=== PATIENT | male | born 1995 | race Caucasian/White ===

== ENCOUNTER 2020-01-25 04:09 | Emergency (ER) | payer SELFPAY ==
[2020-01-25] MEDS ORDERED: Sodium Chloride 0.9% 10 ML Syringe FLUSH PRN (04:12)
[2020-01-25] MEDS ORDERED: Sodium Chloride 0.9% 2.5 ML Syringe FLUSH PRN (04:12)
[2020-01-25] MEDS ORDERED: Sodium Chloride 0.9% 1,000 ML IV ONE (04:13)
[2020-01-25] MEDS ORDERED: Ketorolac 15 MG/ML SDV IVPUSH ONE (04:13)
--- NOTE | 2020-01-25 04:21 | EDM.PDOC ---
ED HPI GENERAL MEDICAL PROBLEM - General Chief Complaint: Genitourinary Problem Stated Complaint: LOWER BACK PAIN Time Seen by Provider: 01/25/20 04:12 - History of Present Illness INITIAL COMMENTS - FREE TEXT/NARRATIVE: History of present illness: 44-year-old male presenting with left lower back/flank pain radiating into the left side of the abdomen. Reports pain is becoming more severe. Started several hours ago. Patient is pale and diaphoretic. No nausea or vomiting. No fevers. No chest pain or difficulty breathing. No prior similar episodes of pain. Review of systems: As per history of present illness and below otherwise all systems reviewed and negative. Past medical history: As per history of present illness and as reviewed below otherwise noncontributory. Surgical history: As per history of present illness and as reviewed below otherwise noncontributory. Social history: No reported history of drug or alcohol abuse. Never smoker Family history: As per history of present illness and as reviewed below otherwise noncontributory. Physical exam: GEN: no acute distress, well appearing HEENT: Atraumatic, normocephalic, mucous membranes moist, Neck: supple, nontender, trachea midline. Lungs: No respiratory distress. Heart: RRR Abdomen: Soft, nondistended, tender to palpation left lower quadrant Back: Left CVA tenderness Extremities: Atraumatic. Neurovascularly intact. Neuro: Awake, alert, oriented. Neuro Exam nonfocal. Skin: warm, dry, no lesions Diagnostics: Labs, CT scan, UA Therapeutics: IV fluids, Toradol MDM: Impression: [] Plan: [] Definitive disposition and diagnosis as appropriate pending reevaluation and review of above. left flank Pain Score (Numeric/FACES): 9 - Related Data Allergies Allergy/AdvReac Type Severity Reaction Status Date / Time No Known Allergies Allergy Verified 01/25/20 04:29 Home Meds: Home Meds Acetaminophen/HYDROcodone [Hewitt 325-5 MG] 1 tab PO Q8H PRN #15 tablet 01/25/20 [Rx] Ibuprofen 600 mg PO Q8H #30 tablet 01/25/20 [Rx] Tamsulosin [Tamsulosin 24 Hr] 0.4 mg PO DAILY #30 cap.er 01/25/20 [Rx] cephALEXin [Keflex] 1,000 mg PO BID #40 cap 01/25/20 [Rx] ED ROS GENERAL - Review of Systems Review Of Systems: See Below (See HPI) ED EXAM, RENAL/ - Physical Exam Exam: See Below (See HPI) Course - Vital Signs Text/Narrative:: Left flank pain. Diaphoretic and pale due to pain. White count is elevated. Labs unremarkable. CT scan shows 3 mm stone just proximal to the UVJ. Pain improved after Toradol and morphine. UA does show positive nitrates but negative leuk esterase and minimal whites, minimal bacteria and moderate RBCs. Given severity of pain and that serum WBC is elevated, will cover with antibiotics. Last Recorded V/S: Last Vital Signs Temp 96.3 F L 01/25/20 04:30 Pulse 64 01/25/20 04:30 Resp 18 01/25/20 04:30 BP 120/78 01/25/20 04:30 Pulse Ox 96 01/25/20 04:30 - Orders/Labs/Meds Orders: Active Orders 24 hr Category Date Time Status Sodium Chloride 0.9% [Saline Flush] Med 01/25/20 04:12 Active 10 ml FLUSH ASDIRECTED PRN Sodium Chloride 0.9% [Saline Flush] Med 01/25/20 04:12 Active 2.5 ml FLUSH ASDIRECTED PRN Saline Lock Insert [OM.PC] Stat Oth 01/25/20 04:12 Ordered Saline Lock Insert [OM.PC] Stat Oth 01/25/20 04:13 Ordered Medication Orders Sodium Chloride (Saline Flush) 10 ml FLUSH ASDIRECTED PRN PRN Reason: Keep Vein Open Sodium Chloride (Saline Flush) 2.5 ml FLUSH ASDIRECTED PRN PRN Reason: Keep Vein Open Labs: Laboratory Tests 01/25/20 01/25/20 01/25/20 Range/Units 04:25 04:25 04:25 WBC 16.63 H (4.0-11.0) K/uL RBC 5.03 (4.50-5.90) M/uL Hgb 15.0 (13.0-17.0) g/dL Hct 43.3 (38.0-50.0) % MCV 86.1 (80.0-98.0) fL MCH 29.8 (27.0-32.0) pg MCHC 34.6 (31.0-37.0) g/dL RDW Std Deviation 37.8 (28.0-62.0) fl RDW Coeff of Penny 12 (11.0-15.0) % Plt Count 326 (150-400) K/uL MPV 11.50 (7.40-12.00) fL Neut % (Auto) 74.9 (48.0-80.0) % Lymph % (Auto) 18.2 (16.0-40.0) % Mcnairy % (Auto) 6.6 (0.0-15.0) % Eos % (Auto) 0.2 (0.0-7.0) % Baso % (Auto) 0.1 (0.0-1.5) % Neut # (Auto) 12.5 H (1.4-5.7) K/uL Lymph # (Auto) 3.0 H (0.6-2.4) K/uL Mcnairy # (Auto) 1.1 H (0.0-0.8) K/uL Eos # (Auto) 0.0 (0.0-0.7) K/uL Baso # (Auto) 0.0 (0.0-0.1) K/uL Nucleated RBC % 0.0 /100WBC Nucleated RBCs # 0 K/uL Sodium 142 (136-148) mmol/L Potassium 3.6 (3.5-5.1) mmol/L Chloride 103 (98-107) mmol/L Carbon Dioxide 28.9 (21.0-32.0) mmol/L BUN 11 (7.0-18.0) mg/dL Creatinine 1.2 (0.8-1.3) mg/dL Est Cr Clr Drug Dosing 90.28 mL/min Estimated GFR (MDRD) > 60.0 ml/min Glucose 148 H (74-106) mg/dL Calcium 9.1 (8.5-10.1) mg/dL Total Bilirubin 0.4 (0.2-1.0) mg/dL Direct Bilirubin 0.10 (0.0-0.5) mg/dL Indirect Bilirubin 0.30 AST 22 (15-37) IU/L ALT 27 (14-63) IU/L Alkaline Phosphatase 91 (46-116) U/L Total Protein 8.3 H (6.4-8.2) g/dL Albumin 4.5 (3.4-5.0) g/dL Globulin 3.8 (2.6-4.0) g/dL Albumin/Globulin Ratio 1.2 (0.9-1.6) Lipase 72 L (73-393) U/L Urine Color Urine Appearance Urine pH (5.0-8.0) Ur Specific Velarde (1.001-1.035) Urine Protein (NEGATIVE) mg/dL Urine Glucose (UA) (NEGATIVE) mg/dL Urine Ketones (NEGATIVE) mg/dL Urine Occult Blood (NEGATIVE) Urine Nitrite (NEGATIVE) Urine Bilirubin (NEGATIVE) Urine Urobilinogen (<2.0) EU/dL Ur Leukocyte Esterase (NEGATIVE) Urine RBC (0-2/HPF) Urine WBC (0-5/HPF) Ur Epithelial Cells (NONE-FEW) Calcium Oxalate Crystal (NEGATIVE) Amorphous Sediment (NEGATIVE) Urine Bacteria (NEGATIVE) Urine Mucus (NONE-MOD) 01/25/20 Range/Units 05:50 WBC (4.0-11.0) K/uL RBC (4.50-5.90) M/uL Hgb (13.0-17.0) g/dL Hct (38.0-50.0) % MCV (80.0-98.0) fL MCH (27.0-32.0) pg MCHC (31.0-37.0) g/dL RDW Std Deviation (28.0-62.0) fl RDW Coeff of Penny (11.0-15.0) % Plt Count (150-400) K/uL MPV (7.40-12.00) fL Neut % (Auto) (48.0-80.0) % Lymph % (Auto) (16.0-40.0) % Mcnairy % (Auto) (0.0-15.0) % Eos % (Auto) (0.0-7.0) % Baso % (Auto) (0.0-1.5) % Neut # (Auto) (1.4-5.7) K/uL Lymph # (Auto) (0.6-2.4) K/uL Mcnairy # (Auto) (0.0-0.8) K/uL Eos # (Auto) (0.0-0.7) K/uL Baso # (Auto) (0.0-0.1) K/uL Nucleated RBC % /100WBC Nucleated RBCs # K/uL Sodium (136-148) mmol/L Potassium (3.5-5.1) mmol/L Chloride (98-107) mmol/L Carbon Dioxide (21.0-32.0) mmol/L BUN (7.0-18.0) mg/dL Creatinine (0.8-1.3) mg/dL Est Cr Clr Drug Dosing mL/min Estimated GFR (MDRD) ml/min Glucose (74-106) mg/dL Calcium (8.5-10.1) mg/dL Total Bilirubin (0.2-1.0) mg/dL Direct Bilirubin (0.0-0.5) mg/dL Indirect Bilirubin AST (15-37) IU/L ALT (14-63) IU/L Alkaline Phosphatase (46-116) U/L Total Protein (6.4-8.2) g/dL Albumin (3.4-5.0) g/dL Globulin (2.6-4.0) g/dL Albumin/Globulin Ratio (0.9-1.6) Lipase (73-393) U/L Urine Color DARK YELLOW Urine Appearance CLOUDY Urine pH 5.5 (5.0-8.0) Ur Specific Velarde >= 1.030 (1.001-1.035) Urine Protein 100 H (NEGATIVE) mg/dL Urine Glucose (UA) NEGATIVE (NEGATIVE) mg/dL Urine Ketones NEGATIVE (NEGATIVE) mg/dL Urine Occult Blood LARGE H (NEGATIVE) Urine Nitrite POSITIVE H (NEGATIVE) Urine Bilirubin SMALL H (NEGATIVE) Urine Urobilinogen 0.2 (<2.0) EU/dL Ur Leukocyte Esterase NEGATIVE (NEGATIVE) Urine RBC 95-100 (0-2/HPF) Urine WBC 0-2 (0-5/HPF) Ur Epithelial Cells FEW (NONE-FEW) Calcium Oxalate Crystal OCCASIONAL (NEGATIVE) Amorphous Sediment LIGHT (NEGATIVE) Urine Bacteria FEW (NEGATIVE) Urine Mucus MODERATE (NONE-MOD) Meds: Medications Generic Name Dose Route Start Last Admin Trade Name Freq PRN Reason Stop Dose Admin Sodium Chloride 10 ml 01/25/20 04:12 Saline Flush FLUSH ASDIRECTED PRN Keep Vein Open Sodium Chloride 2.5 ml 01/25/20 04:12 Saline Flush FLUSH ASDIRECTED PRN Keep Vein Open Discontinued Medications Generic Name Dose Route Start Last Admin Trade Name Freq PRN Reason Stop Dose Admin Cephalexin 1,000 mg 01/25/20 06:46 Keflex PO 01/25/20 06:47 ONETIME ONE Sodium Chloride 1,000 mls @ 999 mls/hr 01/25/20 04:13 01/25/20 04:25 Normal Saline IV 01/25/20 05:13 999 mls/hr .Bolus ONE Administration Ketorolac Tromethamine 15 mg 01/25/20 04:13 01/25/20 04:25 Toradol IVPUSH 01/25/20 04:14 15 mg ONETIME ONE Administration Ketorolac Tromethamine 15 mg 01/25/20 04:59 01/25/20 05:07 Toradol IVPUSH 01/25/20 05:00 15 mg ONETIME ONE Administration Morphine Sulfate 4 mg 01/25/20 05:01 01/25/20 05:07 Morphine IVPUSH 01/25/20 05:02 4 mg ONETIME ONE Administration - Re-Assessments/Exams Free Text/Narrative Re-Assessment/Exam: 01/25/20 05:01 Patient just returned from CT scan, reports he is still in pain and requesting additional pain medication. A second 15 mg dose of Toradol was ordered, and will also order morphine. 01/25/20 05:41 I reassessed the patient. He is feeling much better. Discussed CT scan results with the patient and plan of care. He will attempt to urinate so that we can check a urinalysis. 01/25/20 06:55 Patient is resting comfortably, sleeping. Discussed all the results with the patient and all the medications that have been prescribed for him as well as exactly how to take them. Did also discussed that he may possibly have a urinary tract infection associated with his kidney stone and therefore antibiotics have been prescribed as well. The patient did voice understanding of all of the above and feels well enough to go home at this time. Departure - Departure Time of Disposition: 06:45 Disposition: Home, Self-Care 01 Clinical Impression: Renal colic on left side - Discharge Information Prescriptions: Tamsulosin [Tamsulosin 24 Hr] 0.4 mg PO DAILY #30 cap.er Ibuprofen 600 mg PO Q8H #30 tablet cephALEXin [Keflex] 1,000 mg PO BID #40 cap Acetaminophen/HYDROcodone [Hewitt 325-5 MG] 1 tab PO Q8H PRN #15 tablet PRN Reason: Pain (Severe 7-10) Instructions: Kidney Stones, [id number], Pain Medicine Instructions, [id number] Referrals: PCP,None [Primary Care Provider] - Rosa Ibarra MD [Physician] - 2 Days Forms: ED Department Discharge Additional Instructions: Take the ibuprofen 600 mg every 8 hours for the next 3 days. Also please take the Flomax once daily. If your pain is improved after the next 3 days you may stop taking the ibuprofen or take it only as needed. You may have a urinary tract infection in association with a kidney stone. Please take the antibiotics as prescribed until all pills are done. If your pain is severe and not well controlled by the ibuprofen, you may also take the Hewitt. Please avoid this medication and only take it if you absolutely needed and if you have already taken ibuprofen and your pain has not been improved by that medicine. The following information is given to patients seen in the emergency department who are being discharged to home. This information is to outline your options for follow-up care. We provide all patients seen in our emergency department with a follow-up referral. The need for follow-up, as well as the timing and circumstances, are variable depending upon the specifics of your emergency department visit. If you don't have a primary care physician on staff, we will provide you with a referral. We always advise you to contact your personal physician following an emergency department visit to inform them of the circumstance of the visit and for follow-up with them and/or the need for any referrals to a consulting specialist. The emergency department will also refer you to a specialist when appropriate. This referral assures that you have the opportunity for follow-up care with a specialist. All of these measure are taken in an effort to provide you with optimal care, which includes your follow-up. Under all circumstances we always encourage you to contact your private physician who remains a resource for coordinating your care. When calling for follow-up care, please make the office aware that this follow-up is from your recent emergency room visit. If for any reason you are refused follow-up, please contact the [facility] Emergency Department at and asked to speak to the emergency department charge nurse. Nain[facility] - Primary Care [address] [place] [address] [facility] [address] [place] [id number] Sepsis Event Note (ED) - Focused Exam Vital Signs: Vital Signs Temp Pulse Resp BP Pulse Ox 01/25/20 04:30 96.3 F L 64 18 120/78 96 - My Orders Last 24 Hours: My Active Orders 01/25/20 04:12 Sodium Chloride 0.9% [Saline Flush] 10 ml FLUSH ASDIRECTED PRN Sodium Chloride 0.9% [Saline Flush] 2.5 ml FLUSH ASDIRECTED PRN Saline Lock Insert [OM.PC] Stat 01/25/20 04:13 Saline Lock Insert [OM.PC] Stat - Assessment/Plan Last 24 Hours: My Active Orders 01/25/20 04:12 Sodium Chloride 0.9% [Saline Flush] 10 ml FLUSH ASDIRECTED PRN Sodium Chloride 0.9% [Saline Flush] 2.5 ml FLUSH ASDIRECTED PRN Saline Lock Insert [OM.PC] Stat 01/25/20 04:13 Saline Lock Insert [OM.PC] Stat
[2020-01-25 04:44] LABS: BLOOD UREA NITROGEN,BUN 11 mg/dL (7.0-18.0); CARBON DIOXIDE,CO2 28.9 mmol/L (21.0-32.0); CHLORIDE,CL 103 mmol/L (98-107); GLUCOSE RANDOM 148 mg/dL (74-106); POTASSIUM,K 3.6 mmol/L (3.5-5.1); SODIUM,NA 142 mmol/L (136-148)
[2020-01-25] MEDS ORDERED: Ketorolac 30 MG/ML SDV IVPUSH ONE (04:59)
[2020-01-25] MEDS ORDERED: Morphine 4 MG/ML Syringe IVPUSH ONE (05:01)
[2020-01-25 05:19] LABS: BILIRUBIN INDIRECT 0.3
--- NOTE | 2020-01-25 05:24 | CT ---
Indication: Flank pain Technique: Nonenhanced axial CT imaging through the abdomen and pelvis. Sagittal and coronal reconstructions are provided. Comparison: None Findings: There is a 3 mm stone in the distal left ureter, 2-3 cm from the ureterovesical junction. There is no hydronephrosis or renal edema. No additional renal stones are demonstrated. The urinary bladder is unremarkable. A small hyperdense stone is noted in the gallbladder. There is no gallbladder distention or edema. There is unremarkable noncontrast appearance of the liver, spleen, pancreas, and adrenal glands. There is no abdominal lymphadenopathy. There is normal caliber of the abdominal aorta. The stomach and duodenum are unremarkable. There are no abnormally dilated small bowel loops. The appendix is noninflamed. There is no colonic wall thickening. No inflammatory changes are demonstrated in the mesentery. The osseous structures are unremarkable. The included lung bases are clear. Impression: 1. A 3 mm stone in the distal left ureter. No significant hydronephrosis. No additional stones. 2. Cholelithiasis without evidence of cholecystitis. Please note that all CT scans at this facility use dose modulation, iterative reconstruction, and/or weight-based dosing when appropriate to reduce radiation dose to as low as reasonably achievable. Dictated by Lul Machuca MD @ Jan 25 2020 5:18AM Signed by Dr. Lul Machuca @ Jan 25 2020 5:24AM
[2020-01-25] MEDS ORDERED: Cephalexin 500 MG Cap PO ONE (06:46)
== END 2020-01-25 06:58 | disposition home or self-care (01) ==
LOC: MW.ED 04:09
DX: N20.1 Calculus of ureter (principal); D72.829 Elevated white blood cell count, unspecified
CPT/HCPCS: 36415; 74176; 80048; 80076; 81001; 83690; 85025; 96374; 96375; 96376; 99284; A9270; J1885; J2270; J7030

== ENCOUNTER 2020-06-21 00:16 | Emergency (ER) | payer SELFPAY ==
[2020-06-21] MEDS ORDERED: Metoclopramide 10 MG/2 ML SDV IVPUSH ONE (00:40)
[2020-06-21] MEDS ORDERED: diphenhydrAMINE 50 MG/ML SDV IVPUSH ONE (00:40)
[2020-06-21] MEDS ORDERED: Sodium Chloride 0.9% 1,000 ML IV ONE (00:55)
--- NOTE | 2020-06-21 01:00 | EDM.PDOC ---
ED HPI GENERAL MEDICAL PROBLEM - General Chief Complaint: General Stated Complaint: SICK, VOMITTING, MIGRAINE Time Seen by Provider: 06/21/20 00:42 Source of Information: Reports: Patient History Limitations: Reports: No Limitations - History of Present Illness INITIAL COMMENTS - FREE TEXT/NARRATIVE: Patient is a 25-year-old male presents today for headache and vomiting. Patient states he had a headache for the past 5 days. [id number] medication without relief of the headache. Patient is feels like 1 is normal headaches. Patient denies any injuries to his head. Patient denies any numbness weakness or vision changes. Patient also denies any fever chills or cough. Headache Pain Score (Numeric/FACES): 8 - Related Data Allergies Allergy/AdvReac Type Severity Reaction Status Date / Time No Known Allergies Allergy Verified 06/21/20 00:31 Home Meds: Home Meds . [No Known Home Meds] 06/21/20 [History] Past Medical History - Past Health History Medical/Surgical History: Denies Medical/Surgical History HEENT History: Reports: None Cardiovascular History: Reports: None Respiratory History: Reports: None Gastrointestinal History: Reports: None Genitourinary History: Reports: None Musculoskeletal History: Reports: None Neurological History: Reports: None Psychiatric History: Reports: None Endocrine/Metabolic History: Reports: None Hematologic History: Reports: None Immunologic History: Reports: None Oncologic (Cancer) History: Reports: None Dermatologic History: Reports: None - Infectious Disease History Infectious Disease History: Reports: None Social & Family History - Family History Family Medical History: No Pertinent Family History - Tobacco Use Tobacco Use Status *Q: Never Tobacco User - Recreational Drug Use Recreational Drug Use: No ED ROS GENERAL - Review of Systems Review Of Systems: See Below Constitutional: Reports: No Symptoms HEENT: Reports: No Symptoms Respiratory: Reports: No Symptoms Cardiovascular: Reports: No Symptoms Endocrine: Reports: No Symptoms GI/Abdominal: Reports: No Symptoms : Reports: No Symptoms Musculoskeletal: Reports: No Symptoms Skin: Reports: No Symptoms Neurological: Reports: Headache Psychiatric: Reports: No Symptoms Hematologic/Lymphatic: Reports: No Symptoms Immunologic: Reports: No Symptoms ED EXAM, GENERAL - Physical Exam Exam: See Below Exam Limited By: No Limitations General Appearance: Alert, No Apparent Distress Eye Exam: Bilateral Eye: EOMI, PERRL Ears: Normal External Exam Head: Atraumatic Neck: Normal Inspection, Supple, Full Range of Motion Cardiovascular: Normal Peripheral Pulses, Regular Rate, Rhythm GI/Abdominal: Normal Bowel Sounds, Soft, Non-Tender Extremities: Normal Range of Motion Neurological: Alert, Oriented, CN II-XII Intact, Normal Cognition, Normal Gait Skin Exam: Warm Course - Vital Signs Last Recorded V/S: Last Vital Signs Temp 97.5 F 06/21/20 00:25 Pulse 92 06/21/20 00:25 Resp 20 06/21/20 00:25 BP 128/81 06/21/20 00:25 Pulse Ox 97 06/21/20 00:25 - Orders/Labs/Meds Labs: Laboratory Tests 06/21/20 Range/Units 01:05 SARS-CoV-2 RNA (JAVIER) NEGATIVE (NEGATIVE) Meds: Medications Discontinued Medications Generic Name Dose Route Start Last Admin Trade Name Nanette PRN Reason Stop Dose Admin Diphenhydramine HCl 25 mg 06/21/20 00:40 06/21/20 00:54 Benadryl IVPUSH 06/21/20 00:41 25 mg ONETIME ONE Administration Sodium Chloride 1,000 mls @ 999 mls/hr 06/21/20 00:55 06/21/20 00:56 Normal Saline IV 06/21/20 01:55 999 mls/hr .Bolus ONE Administration Metoclopramide HCl 10 mg 06/21/20 00:40 06/21/20 00:54 Reglan IVPUSH 06/21/20 00:41 10 mg ONETIME ONE Administration - Re-Assessments/Exams Free Text/Narrative Re-Assessment/Exam: 06/21/20 02:11 Headache is improved with the medication. Patient has no neck stiffness or altered mental status. Patient be discharged home given strict return precautions. Departure - Departure Time of Disposition: 02:11 Disposition: Home, Self-Care 01 Condition: Good Clinical Impression: Headache - Discharge Information *PRESCRIPTION DRUG MONITORING PROGRAM REVIEWED*: Not Applicable *COPY OF PRESCRIPTION DRUG MONITORING REPORT IN PATIENT AB: Not Applicable Instructions: Migraine Headache Referrals: PCP,None [Primary Care Provider] - Forms: ED Department Discharge Additional Instructions: The following information is given to patients seen in the emergency department who are being discharged to home. This information is to outline your options for follow-up care. We provide all patients seen in our emergency department with a follow-up referral. The need for follow-up, as well as the timing and circumstances, are variable depending upon the specifics of your emergency department visit. If you don't have a primary care physician on staff, we will provide you with a referral. We always advise you to contact your personal physician following an emergency department visit to inform them of the circumstance of the visit and for follow-up with them and/or the need for any referrals to a consulting speci alist. The emergency department will also refer you to a specialist when appropriate. This referral assures that you have the opportunity for follow-up care with a specialist. All of these measure are taken in an effort to provide you with optimal care, which includes your follow-up. Under all circumstances we always encourage you to contact your private physician who remains a resource for coordinating your care. When calling for follow-up care, please make the office aware that this follow-up is from your recent emergency room visit. If for any reason you are refused follow-up, please contact the [facility] Emergency Department at and asked to speak to the emergency department charge nurse. Please follow up with your primary care physician. If you do not have a primary care physician, see below: [facility] [address] [place] [id number] My [facility] [address] [place] [phone] With your primary care physician. If you develop any fevers chills neurological symptoms neck pain please return to the ED. Sepsis Event Note (ED) - Evaluation Sepsis Screening Result: No Definite Risk - Focused Exam Vital Signs: Vital Signs Temp Pulse Resp BP Pulse Ox 06/21/20 00:25 97.5 F 92 20 128/81 97 - Assessment/Plan Plan: Is a 25-year-old male presents today for headache with vomiting. Patient has no concerning neurological findings on examination. Will provide pain control and also test for coronavirus patient believes he had exposure.
== END 2020-06-21 02:26 | disposition home or self-care (01) ==
LOC: MW.ED 00:16
DX: R51.9 Headache, unspecified (principal); R11.10 Vomiting, unspecified; Z20.828 Contact with and (suspected) exposure to other viral communicable diseases
CPT/HCPCS: 87635; 96374; 96375; 99284; J1200; J2765; J7030; 99282; U0002